=== PATIENT | female | born 1970 | race Caucasian/White ===

== ENCOUNTER 2018-07-17 10:24 | Outpatient (CLI) | payer BC ==
[2018-07-17 10:53] LABS: #Eosinphils 0.1 thou/uL (0.0-0.7); #Lymphocytes 1.6 thou/uL (1.20-3.40); #Monocytes 0.4 thou/uL (0.11-0.59); %Basophils 0.2 % (0.0-1.0); %Eosinophils 1.8 % (0.0-10.0); %Lymphocytes 26.7 % (21.0-51.0); %Monocytes 6.6 % (0.0-10.0); %Neutrophils 64.7 % (42.0-75.0); Hemoglobin 12.4 g/dL (12.0-16.0); Mean Corpuscular HGB CONC 32.8 g/dL (32.0-36.0); Mean Corpuscular Hemoglobin 28.5 pg (27.0-31.0); Mean Corpuscular Volume 87.1 fL (78.0-98.0); Mean Platelet Volume 7.6 fL (7.4-10.4); Platelet Count 339 thou/uL (130-400); RBC Distribution Width 12.2 % (11.5-14.5); Red Blood Cell (RBC) Count 4.33 mill/uL (4.20-5.40); White Blood Cell (WBC) Count 6.2 thou/uL (4.8-10.8)
[2018-07-17 11:15] LABS: ALT (SGPT) 10 U/L (8-55); AST (SGOT) 12 U/L (5-34); Albumin 4.9 g/dL (3.5-5.0); Alkaline Phosphatase 83 U/L (40-150); Anion Gap 10 mmol/L (10-20); BUN (Urea Nitrogen) 16 mg/dL (7.0-18.7); Bilirubin, Direct 0.1 mg/dL (0.1-0.3); Bilirubin, Total 0.2 mg/dL (0.2-1.2); Calc. Creatinine Clearance 0 mL/min (70-130); Carbon Dioxide 29 mmol/L (22-29); Chloride 103 mmol/L (98-107); Estimated GFR-MDRD 69; Glucose 121 mg/dL (70-105); Potassium 4.2 mmol/L (3.5-5.1); Protein, Total 7.9 g/dL (6.0-8.3); Sodium 138 mmol/L (136-145)
== END 2018-07-17 10:25 | disposition home or self-care (01) ==
LOC: LABBT 10:24
PROVIDERS: ATTEND Surgery
DX: Z01.812 Encounter for preprocedural laboratory examination (principal); K80.20 Calculus of gallbladder without cholecystitis without obstruction
CPT/HCPCS: 80053; 80076; 85025; 93005; 93010

== ENCOUNTER 2018-07-20 05:46 | Day surgery (SDC) | payer BC ==
[2018-07-17 10:54] VITALS: BMI 27.4
[2018-07-20] MEDS ORDERED: Fentanyl 100 MCG/2 ML VIAL ONE ×3 (06:55→09:48)
[2018-07-20] MEDS ORDERED: Midazolam HCl 2 mg/2 ml Vial ONE (07:08)
[2018-07-20] MEDS ORDERED: Scopolamine 1.5 mg/72 hour Patch ONE (07:08)
[2018-07-20] MEDS ORDERED: cefOXitin 2 GM VIAL ONE (07:09)
[2018-07-20] MEDS ORDERED: Sodium Chloride 0.9% 100 ML ONE (07:09)
[2018-07-20] MEDS ORDERED: Bupivacaine/Epinephrine 0.25% 30 ML VIAL ONE (07:45)
[2018-07-20] MEDS ORDERED: HYDROcodone/Acetaminophen 5/325 mg Tablet ONE (11:08)
--- NOTE | 2018-07-20 11:34 | OP ---
DATE OF PROCEDURE: 07/20/2018 PREOPERATIVE DIAGNOSES: History of small-bowel obstruction, symptomatic cholelithiasis. SURGEON: Jose Mercedes M.D. PROCEDURE: Laparoscopic lysis of adhesions, laparoscopic cholecystectomy. INDICATIONS: The patient is a 48-year-old female who was treated nonsurgically for a small-bowel obs truction. She had a previous umbilical hernia repair. She also was having chronic nausea and some r ight upper quadrant pain and ultrasound showed cholelithiasis. FINDINGS: A dense group of adhesions to the umbilicus, potentially source for small-bowel obstructio n. Also, she had about 3 large stones and a small caliber cystic duct. PROCEDURE IN DETAIL: After informed consent was obtained, the patient was taken to the operating zhang m, given general endotracheal anesthesia. She was placed in the supine position. The abdomen was pr epped and draped in usual fashion. Local anesthesia infiltrated subcutaneously and deep and a 5 mm i ncision was performed right subcostal. Veress needle inserted. Drop test performed. Pneumoperitone um was created to a volume of 2 liters of carbon dioxide. Utilizing a bladeless 5 mm trocar and 0 de gree laparoscope, direct visual entry in the abdominal cavity was performed. Pneumoperitoneum was cr eated to a pressure of 15 mmHg. Under direct vision, two other 5-mm ports were placed subcostally. She had some dense adhesions to the umbilicus. These were taken down using sharp dissection with edyta ctrocautery and scissors. Once these were taken down a subumbilical incision was performed. The sub cu divided sharply. The fascia was incised with an 11 blade and a blunt 12 mm trocar inserted. The patient placed in the reverse Trendelenburg position and the gallbladder grasped. There were adhesio ns to the gallbladder. These were also lysed sharply. The peritoneum opened to expose the cystic du ct artery and critical view. The duct and artery were triply ligated with Hemoclips and divided. Th e gallbladder was removed from its fossa utilizing electrocautery, removed from the abdomen through t he umbilical port. Hemostasis was assured. The umbilical fascia was closed with 0 Vicryl suture and the GraNee needle. Trocars and retractors removed. Skin closed with interrupted 4-0 Rapide. [place] arnett applied. The patient tolerated the procedure well and was transferred to recovery in good condi tion. Sponge and needle count verified correct x2.
[2018-07-20] MEDS ORDERED: Lidocaine 1% PF 5 ML VIAL ONE (13:35)
[2018-07-20] MEDS ORDERED: Succinylcholine Chloride 20 MG/ML 10 ml SYRINGE FS ONE (13:35)
[2018-07-20] MEDS ORDERED: Ondansetron PF 4 MG/2 ML Vial ONE (13:35)
[2018-07-20] MEDS ORDERED: PROPOFOL 200 MG/20 ML VIAL ONE (13:35)
[2018-07-20] MEDS ORDERED: Dexamethasone 20 MG/5 ML VIAL ONE (13:35)
== END 2018-07-20 12:14 | disposition home or self-care (01) ==
LOC: SDC 05:46
PROVIDERS: ATTEND Surgery
PROC: 0FT44ZZ Resection of Gallbladder, Percutaneous Endoscopic Approach (ICD-10-PCS; principal; 2018-07-20)
DX: K80.10 Calculus of gallbladder with chronic cholecystitis without obstruction (principal); E11.9 Type 2 diabetes mellitus without complications; I10 Essential (primary) hypertension; E78.00 Pure hypercholesterolemia, unspecified; Z79.84 Long term (current) use of oral hypoglycemic drugs; Z79.899 Other long term (current) drug therapy; Z87.19 Personal history of other diseases of the digestive system
CPT/HCPCS: 88304; 96374; 96376; J0694; J2250; J3010; J7050

== ENCOUNTER 2020-10-19 14:13 | Outpatient (CLI) | payer BC ==
--- NOTE | 2020-10-19 16:25 | MRI ---
MRI thoracic spine without contrast: 10/19/2020 COMPARISON: 10/11/2013 History: Thoracic stenosis, back pain that wraps around to the front, "cemented injected into mid ann-marie k years ago for a hemangioma" TECHNIQUE: Multiplanar multisequence MR imaging of the thoracic spine provided without contrast FINDINGS: No thoracic spine anterolisthesis or retrolisthesis is noted. The sagittal STIR imaging dem onstrates no focal area of osseous marrow edema to suggest the presence of acute fracture. There is a new focal area of decreased T1 and T2 signal within the T8 vertebral body, consistent with the provided history of prior cementing. There is a stable hemangioma within the the T7 vertebral body measuring 2.4 cm in AP dimension and 1. 6 cm in craniocaudal dimension. There is an additional stable T9 hemangioma measuring 8 mm. T1-2: Mild facet hypertrophy on the left. Mild left neural foraminal stenosis. No significant central canal or right neural foraminal stenosis. T2-3: There is disc space narrowing with disc desiccation. There is a new central disc herniation georgiana suring 4 mm in AP dimension and approximately 8 mm in craniocaudal dimension, resulting in partial effacement of the ventral thecal sac and a mild degree of central canal stenosis. No significant neur al foraminal stenosis. T3-4: There is a new very small central disc protrusion with no associated central canal or neural fo raminal stenosis. T4-5: No central canal or neural foraminal stenosis. T5-6: No central canal or neural foraminal stenosis T6-7: No significant central canal or neural foraminal stenosis. A small hemangioma is noted within t he right T6 pedicle. T7-8: No significant central canal or neural foraminal stenosis. T8-9: No central canal or neural foraminal stenosis. T9-10: No central canal or neural foraminal stenosis T10-11: Mild left facet hypertrophy. No significant central canal or neural foraminal stenosis. T11-12: Facet hypertrophy noted on the left with mild left neural foraminal stenosis. No significant central canal or right neural foraminal stenosis. T12-L1: No significant central canal or neural foraminal stenosis. There is no focal area of abnormal signal intensity identified within the thoracic cord. IMPRESSION: Stable T7 hemangioma. Interval cementing at the T8 level. Additional hemangiomata as above. New central disc herniation at T2-3 with mild central canal stenosis.
== END 2020-10-19 14:14 | disposition home or self-care (01) ==
LOC: BICMRI 14:13
PROVIDERS: ATTEND Anesthesiology Pain Medicine
DX: M48.04 Spinal stenosis, thoracic region (principal); M51.24 Other intervertebral disc displacement, thoracic region; D18.09 Hemangioma of other sites
CPT/HCPCS: 72146

== ENCOUNTER 2020-11-19 11:06 | Outpatient (CLI) | payer BC ==
--- NOTE | 2020-11-19 12:51 | RAD ---
Radiograph left hip 2 views: HISTORY: 50-year-old female with left hip pain FINDINGS: Femoral head contour maintained. No subcapital osteophytes. Mild bony hypertrophy of acetabular roof. Hip joint space maintained. No high-grade DJD of left SI joint. Left pedicle screws at lower lumbar spine with interbody graft. IMPRESSION: 1. Minimal degenerative changes at left hip. 2. Otherwise normal left hip. 3. Evidence of lower lumbar spondylosis with hardware
== END 2020-11-19 11:07 | disposition home or self-care (01) ==
LOC: BICRAD 11:06
PROVIDERS: ATTEND Anesthesiology Pain Medicine
DX: M16.12 Unilateral primary osteoarthritis, left hip (principal); M47.816 Spondylosis without myelopathy or radiculopathy, lumbar region; Z98.890 Other specified postprocedural states

== ENCOUNTER 2021-01-13 08:35 | Outpatient (CLI) | payer BC | END 2021-01-13 08:36 | disposition home or self-care (01) | LOC: TBSIIMAG 08:35 | PROVIDERS: ATTEND Anesthesiology Pain Medicine | DX: M48.02 Spinal stenosis, cervical region (principal); M51.24 Other intervertebral disc displacement, thoracic region; Z98.890 Other specified postprocedural states | CPT/HCPCS: 72141 ==